=== PATIENT | male | born 1995 | race Caucasian/White ===

== ENCOUNTER 2016-07-10 22:04 | Emergency (ER) | payer OTHER ==
[2016-07-10] MEDS ORDERED: ALBUTEROL SULFATE 2.5 MG/0.5 ML INH NEB SOLN As Ordered ONE (23:27)
[2016-07-10] MEDS ORDERED: ALBUTEROL 90 MCG/ACT 8GM HFA INHALER As Ordered ONE (23:53)
[2016-07-11] MEDS ORDERED: predniSONE 20 MG TAB As Ordered ONE (00:10)
--- NOTE | 2016-07-11 00:20 | EDDOCDS ---
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 Aspirin was not taken prior to arrival. Adult Sepsis Screening: The patient does not have new or worsening altered mentation. Patient's respiratory rate is less than 22. Systolic blood pressure is greater than 100. Patient has a qSOFA score of 0- Negative Sepsis Screen. Suicide/Homicide risk assessment- the patient denies having any suicidal and/or homicidal ideations and does not present with any other emotional, behavioral or mental health complaints. 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 Transition of care: patient was not received from another setting of care. 22:08 Acuity: ERNESTO Level 3 [facility] 22:08 Method Of Arrival: Walkin/Carried/Asstd [facility] Triage Assessment: 22:10 General: Appears uncomfortable, Behavior is cooperative. Pain: Location: chest Pain mcp currently is 5 out of 10 on a pain scale. Quality of pain is described as aching. HIV screening NA for this visit Offered previously. Neurological: No deficits noted. Cardiovascular: Chest pain is described as mild, quality is ache radiates Does not radiate. episodes are intermittent began 2 hours prior to arrival. Respiratory: Airway is patent Respiratory effort is even, unlabored, Reports shortness of breath at rest pain with respiration deep respiration. Derm: Skin is pink, warm & dry. Historical: - Allergies: no known allergies; - Home Meds: 1. none - PMHx: none; - PSHx: none; - Social history: Smoking status: Patient states was never smoker of tobacco. No barriers to communication noted, The patient speaks fluent Portuguese. - Family history: Not pertinent. - : The pt / caregiver states he / she is not on anticoagulants. Home medication list is obtained from the patient. - Exposure Risk Screening:: None identified. Screenin/04 00:01 Screening information is obtained from the patient. Fall risk: No risks identified. ld5 Assistance ADL's: requires no assistance with activities of daily living. Abuse/DV Screen: The patient / caregiver reports he/she is: not in a situation that causes fear, pain or injury. Nutritional screening: No deficits noted. Advance Directives: There is no active DNR order. home support is adequate. Assessment: 07/10 23:25 General: Appears in no apparent distress, Behavior is cooperative. Pain: Location: ld5 chest Aggravated by increased activity. Neurological: Level of Consciousness is awake, alert. Cardiovascular: Rhythm is n/a. Respiratory: Airway is patent Respiratory effort is even, unlabored, Breath sounds are coarse bilaterally. Derm: Skin is intact, Skin is dry. 07/11 00:18 Reassessment: Patient appears in no apparent distress at this time. Patient denies pain rw1 at this time. Patient states feeling better. Patient states symptoms have improved. Vital Signs: 07/10 22:07 BP 172 / 82 LA Sitting (auto/lg); Pulse 92; Resp 16; Temp 98.9(O); Pulse Ox 100% on rs6 R/A; Weight 63.5 kg (R); Height 5 ft. 4 in. (162.56 cm) (R); Pain 5/10; 07/11 00:11 BP 166 / 70; Pulse 96; Resp 20; Temp 97.6(O); Pulse Ox 98% on R/A; Pain 0/10; jmv 07/10 22:07 Body Mass Index 24.03 (63.50 kg, 162.56 cm) rs6 Vitals: 07/10 22:07 Log In Time: July 10, 2016 at 22:07. rs6 ED Course: 22:05 Patient visited by Cassandra Brown, Reg. hs2 22:05 Patient moved to Waiting hs2 22:08 Patient visited by Faustina Pugh, TARA. rs6 22:08 Patient moved to Pre RCE rs6 22:09 Triage Initiated mcp 22:11 Patient visited by Damaris Hagan RN. mcp 22:11 Patient moved to PR2 / mcp 22:26 EKG done. (by ED staff). Reviewed by Juan Barker DO. ttb 22:27 Patient visited by Carito Abraham RN. ttb 22:30 Patient moved to Pre RCE cz 22:53 Patient moved to Triage 2 cz 23:12 Macario Shepherd PA-C is PHCP. dk1 23:12 Juan Barker DO is Attending Physician. dk1 23:12 Patient visited by Macario Shepherd PA-C. dk1 23:18 Patient moved to I6 cz 02/04 00:01 The patient / caregiver is instructed regarding the plan of care and ED course. ld5 Accompanied by Family Member, Patient has correct armband on for positive identification. Cardiac monitoring not applicable on this patient. 00:01 No IV's were initiated during this patient's visit. No procedures done that require ld5 assistance. 00:03 Patient visited by Jessenia Cutler RN. ld5 00:06 Jermaine Chow [facility] is Referral Physician. dk1 00:15 Patient visited by Shiv Benitez PCA. satnamv Administered Medications: 07/10 23:32 Drug: Albuterol 5 mg [albuterol sulfate 2.5 mg/0.5 mL solution for nebulization (1 mL)] nk1 Route: Nebulizer; 07/11 00:18 Follow up: Response: No Adverse Reaction rw1 00:17 Drug: Ventolin 2 puffs [Ventolin HFA 90 mcg/actuation aerosol inhaler (2 puffs)] Route: rw1 Inhalation; 00:17 Follow up: Response: Med's dispensed home rw1 00:17 Drug: predniSONE 40 mg [prednisone 20 mg tablet (2 tabs)] Route: PO; rw1 00:17 Follow up: Response: Pt left department before re-evaluation is appropriate rw1 RT: 07/10 23:33 Initial Med Neb Given as ordered Patient was instructed and evaluated on procedure nk1 Patient tolerated procedure well without adverse effect. Pre Peak Flow: 400. Respiratory: Airway is patent Respiratory effort is even, unlabored, Breath sounds are coarse Breath sounds are diminished bilaterally. in left posterior upper lobe, right posterior upper lobe, left posterior lower lobe, right posterior middle lobe and right posterior lower lobe. 23:43 Post Peak Flow: 500. Respiratory: Breath sounds are clear with increased aeration nk1 throughout, patient states relief. 07/11 00:03 Initial MDI Given. Spacer used Number of puffs given: 2. nk1 Order Results: There are currently no results for this order. Outcome: 00:01 No special radiology studies were completed. ld5 00:06 Discharge ordered by Provider. dk1 00:18 Discharge Assessment: Patient awake, alert and oriented x 3. No cognitive and/or rw1 functional deficits noted. Patient verbalized understanding of disposition instructions. patient administered narcotics - no. The following High Risk Discharge criteria are identified: None. Discharged to home ambulatory, with friend. Condition: stable Condition: improved. Discharge instructions given to patient, Instructed on discharge instructions, follow up and referral plans. medication usage, Demonstrated understanding of instructions, medications, Pt was receptive of discharge instructions/ teaching. Prescriptions given X 2. Property sent home with patient. 00:19 Patient left the ED. rw1 Signatures: Damaris Hagan, RN RN Marquis Manjarrez, RN RN cz Macario Shepherd, PA-C PA-C dk1 Jo Jimenez,RT RT nk1 King Parisi LPN POSTING SPECIALIST rw1 Jessenia Cutler,RN RN ld5 Carito Abraham, RN RN ttb Faustina Pugh, COMPUTATIONAL THEORY SCIENTIST COMPUTATIONAL THEORY SCIENTIST rs6 Cassandra Brown, Reg Reg hs2 Shiv Benitez, COMPUTATIONAL THEORY SCIENTIST COMPUTATIONAL THEORY SCIENTIST jmv MTDD
--- NOTE | 2016-07-11 00:20 | EDDOCDS ---
Physician Documentation [facility] Name: Asif Cleary Age: 21 yrs Sex: Male : 1995 Arrival Date: 07/10/2016 Time: 22:04 Bed I6 / 28 Private MD: Disposition: 07/11/16 00:06 Discharged to Home/Self Care. 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 - Condition is Stable. - Discharge Instructions: Reactive Airway Disease, Child. - Prescriptions for Medrol (Tarik) 4 mg Oral Tablets, Dose Pack - take 1 Pack by ORAL route as directed - follow package instructions; 1 packet. Albuterol Sulfate 90 mcg/actuation Inhalation HFA Aerosol Inhaler - inhale 2 puff by INHALATION route every 4 hours As needed; 1 Inhaler. - Medication Reconciliation, Local Pharmacy Hours form. - Follow up: Jermaine Chow [facility]; When: 2 - 3 days; Reason: Continuance of care. - Problem is an acute exacerbation. - Symptoms are resolved. Historical: - Allergies: no known allergies; - Home Meds: 1. none - PMHx: none; - PSHx: none; - Social history: Smoking status: Patient states was never smoker of tobacco. No barriers to communication noted, The patient speaks fluent Turkish. - Family history: Not pertinent. - : The pt / caregiver states he / she is not on anticoagulants. Home medication list is obtained from the patient. - Exposure Risk Screening:: None identified. Vital Signs: 07/10 22:07 BP 172 / 82 LA Sitting (auto/lg); Pulse 92; Resp 16; Temp 98.9(O); Pulse Ox 100% on rs6 R/A; Weight 63.5 kg / 139.99 lbs (R); Height 5 ft. 4 in. (162.56 cm) (R); Pain 5/10; 07/11 00:11 BP 166 / 70; Pulse 96; Resp 20; Temp 97.6(O); Pulse Ox 98% on R/A; Pain 0/10; jmv 07/10 22:07 Body Mass Index 24.03 (63.50 kg, 162.56 cm) rs6 MDM: 07/10 22:14 ECG WITH READING ER PHYS+CARDIAG ordered. EDMS 23:17 Albuterol 5 mg Nebulizer once ordered. dk1 23:17 Peak Flow Pre & Post ordered. dk1 23:33 Peak Flow Pre & Post complete. nk1 23:58 Call Respiratory ordered. dk1 23:58 MDI teaching with Spacer ordered. dk1 23:58 Ventolin Inhaler 2 puffs Inhalation once ordered. dk1 23:59 Call Respiratory complete. rw1 07/11 00:07 predniSONE 40 mg PO once; administer with food or milk ordered. dk1 00:08 Financial registration complete. [facility] Administered Medications: 07/10 23:32 Drug: Albuterol 5 mg [albuterol sulfate 2.5 mg/0.5 mL solution for nebulization (1 mL)] nk1 Route: Nebulizer; 07/11 00:18 Follow up: Response: No Adverse Reaction rw1 00:17 Drug: Ventolin 2 puffs [Ventolin HFA 90 mcg/actuation aerosol inhaler (2 puffs)] Route: rw1 Inhalation; 00:17 Follow up: Response: Med's dispensed home rw1 00:17 Drug: predniSONE 40 mg [prednisone 20 mg tablet (2 tabs)] Route: PO; rw1 00:17 Follow up: Response: Pt left department before re-evaluation is appropriate rw1 Signatures: Dispatcher [employer] Damaris Ernst RN RN mcp Keyes, David, PA-C PA-C dk1 Jo Jimenez,RT RT nk1 King Parisi,HAND WOVEN CARPET AND RUG MENDER HAND WOVEN CARPET AND RUG MENDER rw1 Jessenia Cutler,RICHARD RN Bonnie Rosa [facility] MTDD
--- NOTE | 2016-07-11 09:01 | ECGEPIP ---
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
--- NOTE | 2016-07-13 01:20 | EDDOCDS ---
Physician Documentation [facility] Name: Asif Cleary Age: 21 yrs Sex: Male : 1995 Arrival Date: 07/10/2016 Time: 22:04 Bed I6 / 28 Private MD: Disposition: 07/11/16 00:06 Discharged to Home/Self Care. 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 - Condition is Stable. - Discharge Instructions: Reactive Airway Disease, Child. - Prescriptions for Medrol (Tarik) 4 mg Oral Tablets, Dose Pack - take 1 Pack by ORAL route as directed - follow package instructions; 1 packet. Albuterol Sulfate 90 mcg/actuation Inhalation HFA Aerosol Inhaler - inhale 2 puff by INHALATION route every 4 hours As needed; 1 Inhaler. - Medication Reconciliation, Local Pharmacy Hours form. - Follow up: Jermaine Chow [facility]; When: 2 - 3 days; Reason: Continuance of care. - Problem is an acute exacerbation. - Symptoms are resolved. Historical: - Allergies: no known allergies; - Home Meds: 1. none - PMHx: none; - PSHx: none; - Social history: Smoking status: Patient states was never smoker of tobacco. No barriers to communication noted, The patient speaks fluent Czech. - Family history: Not pertinent. - : The pt / caregiver states he / she is not on anticoagulants. Home medication list is obtained from the patient. - Exposure Risk Screening:: None identified. Vital Signs: 07/10 22:07 BP 172 / 82 LA Sitting (auto/lg); Pulse 92; Resp 16; Temp 98.9(O); Pulse Ox 100% on rs6 R/A; Weight 63.5 kg / 139.99 lbs (R); Height 5 ft. 4 in. (162.56 cm) (R); Pain 5/10; 07/11 00:11 BP 166 / 70; Pulse 96; Resp 20; Temp 97.6(O); Pulse Ox 98% on R/A; Pain 0/10; jmv 07/10 22:07 Body Mass Index 24.03 (63.50 kg, 162.56 cm) rs6 MDM: 07/10 22:14 ECG WITH READING ER PHYS+CARDIAG ordered. EDMS 23:17 Albuterol 5 mg Nebulizer once ordered. dk1 23:17 Peak Flow Pre & Post ordered. dk1 23:33 Peak Flow Pre & Post complete. nk1 23:58 Call Respiratory ordered. dk1 23:58 MDI teaching with Spacer ordered. dk1 23:58 Ventolin Inhaler 2 puffs Inhalation once ordered. dk1 23:59 Call Respiratory complete. rw1 0204 00:07 predniSONE 40 mg PO once; administer with food or milk ordered. dk1 00:08 Financial registration complete. [facility] 00:31 [facility] Payment Agreement was scanned into [employer] and attached to record. [facility] 17:12 ECG/EKG was scanned into [employer] and attached to record. kf3 17:45 T-Sheet-- Draft Copy was scanned into [employer] and attached to record. klr Administered Medications: 07/10 23:32 Drug: Albuterol 5 mg [albuterol sulfate 2.5 mg/0.5 mL solution for nebulization (1 mL)] nk1 Route: Nebulizer; 07/11 00:18 Follow up: Response: No Adverse Reaction rw1 00:17 Drug: Ventolin 2 puffs [Ventolin HFA 90 mcg/actuation aerosol inhaler (2 puffs)] Route: rw1 Inhalation; 00:17 Follow up: Response: Med's dispensed home rw1 00:17 Drug: predniSONE 40 mg [prednisone 20 mg tablet (2 tabs)] Route: PO; rw1 00:17 Follow up: Response: Pt left department before re-evaluation is appropriate rw1 Signatures: Dispatcher [employer] Damaris Ernst RN RN mcp Keyes, David, PA-C PA-C dk1 Jo Jimenez,RT RT nk1 King Parisi,SENIOR PROCESS ENGINEER SENIOR PROCESS ENGINEER rw1 Darvin Arora, Reg Reg kf3 Jessenia Cutler,RN RN Bonnie Rosa [facility] Tawny Mcclure The chart was reviewed and I authenticate all verbal orders and agree with the evaluation and treatment provided.Attachments: 00:31 [facility] Payment Agreement [facility] 17:12 ECG/EKG kf3 17:45 T-Sheet-- Draft Copy klr Chart Complete MTDD
--- NOTE | 2016-07-13 01:20 | EDDOCDS ---
Physician Documentation [facility] Name: Asif Cleary Age: 21 yrs Sex: Male : 1995 Arrival Date: 07/10/2016 Time: 22:04 Bed I6 / 28 Private MD: Disposition: 07/11/16 00:06 Discharged to Home/Self Care. 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 - Condition is Stable. - Discharge Instructions: Reactive Airway Disease, Child. - Prescriptions for Medrol (Tarik) 4 mg Oral Tablets, Dose Pack - take 1 Pack by ORAL route as directed - follow package instructions; 1 packet. Albuterol Sulfate 90 mcg/actuation Inhalation HFA Aerosol Inhaler - inhale 2 puff by INHALATION route every 4 hours As needed; 1 Inhaler. - Medication Reconciliation, Local Pharmacy Hours form. - Follow up: Jermaine Chow [facility]; When: 2 - 3 days; Reason: Continuance of care. - Problem is an acute exacerbation. - Symptoms are resolved. Historical: - Allergies: no known allergies; - Home Meds: 1. none - PMHx: none; - PSHx: none; - Social history: Smoking status: Patient states was never smoker of tobacco. No barriers to communication noted, The patient speaks fluent Serbian. - Family history: Not pertinent. - : The pt / caregiver states he / she is not on anticoagulants. Home medication list is obtained from the patient. - Exposure Risk Screening:: None identified. Vital Signs: 07/10 22:07 BP 172 / 82 LA Sitting (auto/lg); Pulse 92; Resp 16; Temp 98.9(O); Pulse Ox 100% on rs6 R/A; Weight 63.5 kg / 139.99 lbs (R); Height 5 ft. 4 in. (162.56 cm) (R); Pain 5/10; 07/11 00:11 BP 166 / 70; Pulse 96; Resp 20; Temp 97.6(O); Pulse Ox 98% on R/A; Pain 0/10; jmv 07/10 22:07 Body Mass Index 24.03 (63.50 kg, 162.56 cm) rs6 MDM: 07/10 22:14 ECG WITH READING ER PHYS+CARDIAG ordered. EDMS 23:17 Albuterol 5 mg Nebulizer once ordered. dk1 23:17 Peak Flow Pre & Post ordered. dk1 23:33 Peak Flow Pre & Post complete. nk1 23:58 Call Respiratory ordered. dk1 23:58 MDI teaching with Spacer ordered. dk1 23:58 Ventolin Inhaler 2 puffs Inhalation once ordered. dk1 23:59 Call Respiratory complete. rw1 0204 00:07 predniSONE 40 mg PO once; administer with food or milk ordered. dk1 00:08 Financial registration complete. [facility] 00:31 [facility] Payment Agreement was scanned into [employer] and attached to record. [facility] 17:12 ECG/EKG was scanned into [employer] and attached to record. kf3 17:45 T-Sheet-- Draft Copy was scanned into [employer] and attached to record. klr Administered Medications: 07/10 23:32 Drug: Albuterol 5 mg [albuterol sulfate 2.5 mg/0.5 mL solution for nebulization (1 mL)] nk1 Route: Nebulizer; 07/11 00:18 Follow up: Response: No Adverse Reaction rw1 00:17 Drug: Ventolin 2 puffs [Ventolin HFA 90 mcg/actuation aerosol inhaler (2 puffs)] Route: rw1 Inhalation; 00:17 Follow up: Response: Med's dispensed home rw1 00:17 Drug: predniSONE 40 mg [prednisone 20 mg tablet (2 tabs)] Route: PO; rw1 00:17 Follow up: Response: Pt left department before re-evaluation is appropriate rw1 Signatures: Dispatcher [employer] Damaris Ernst RN RN mcp Keyes, David, PA-C PA-C dk1 Jo Jimenez,RT RT nk1 King Parisi,BODY ART TECHNICIAN BODY ART TECHNICIAN rw1 Darvin Arora, Reg Reg kf3 Jessenia Cutler,RN RN Bonnie Rosa [facility] Tawny Mcclure The chart was reviewed and I authenticate all verbal orders and agree with the evaluation and treatment provided.Attachments: 00:31 [facility] Payment Agreement [facility] 17:12 ECG/EKG kf3 17:45 T-Sheet-- Draft Copy klr Chart Complete MTDD
--- NOTE | 2016-07-13 01:20 | EDDOCDS ---
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 Aspirin was not taken prior to arrival. Adult Sepsis Screening: The patient does not have new or worsening altered mentation. Patient's respiratory rate is less than 22. Systolic blood pressure is greater than 100. Patient has a qSOFA score of 0- Negative Sepsis Screen. Suicide/Homicide risk assessment- the patient denies having any suicidal and/or homicidal ideations and does not present with any other emotional, behavioral or mental health complaints. 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 Transition of care: patient was not received from another setting of care. 22:08 Acuity: ERNESTO Level 3 [facility] 22:08 Method Of Arrival: Walkin/Carried/Asstd [facility] Triage Assessment: 22:10 General: Appears uncomfortable, Behavior is cooperative. Pain: Location: chest Pain mcp currently is 5 out of 10 on a pain scale. Quality of pain is described as aching. HIV screening NA for this visit Offered previously. Neurological: No deficits noted. Cardiovascular: Chest pain is described as mild, quality is ache radiates Does not radiate. episodes are intermittent began 2 hours prior to arrival. Respiratory: Airway is patent Respiratory effort is even, unlabored, Reports shortness of breath at rest pain with respiration deep respiration. Derm: Skin is pink, warm & dry. Historical: - Allergies: no known allergies; - Home Meds: 1. none - PMHx: none; - PSHx: none; - Social history: Smoking status: Patient states was never smoker of tobacco. No barriers to communication noted, The patient speaks fluent Spanish. - Family history: Not pertinent. - : The pt / caregiver states he / she is not on anticoagulants. Home medication list is obtained from the patient. - Exposure Risk Screening:: None identified. Screenin/04 00:01 Screening information is obtained from the patient. Fall risk: No risks identified. ld5 Assistance ADL's: requires no assistance with activities of daily living. Abuse/DV Screen: The patient / caregiver reports he/she is: not in a situation that causes fear, pain or injury. Nutritional screening: No deficits noted. Advance Directives: There is no active DNR order. home support is adequate. Assessment: 07/10 23:25 General: Appears in no apparent distress, Behavior is cooperative. Pain: Location: ld5 chest Aggravated by increased activity. Neurological: Level of Consciousness is awake, alert. Cardiovascular: Rhythm is n/a. Respiratory: Airway is patent Respiratory effort is even, unlabored, Breath sounds are coarse bilaterally. Derm: Skin is intact, Skin is dry. 07/11 00:18 Reassessment: Patient appears in no apparent distress at this time. Patient denies pain rw1 at this time. Patient states feeling better. Patient states symptoms have improved. Vital Signs: 07/10 22:07 BP 172 / 82 LA Sitting (auto/lg); Pulse 92; Resp 16; Temp 98.9(O); Pulse Ox 100% on rs6 R/A; Weight 63.5 kg (R); Height 5 ft. 4 in. (162.56 cm) (R); Pain 5/10; 07/11 00:11 BP 166 / 70; Pulse 96; Resp 20; Temp 97.6(O); Pulse Ox 98% on R/A; Pain 0/10; jmv 07/10 22:07 Body Mass Index 24.03 (63.50 kg, 162.56 cm) rs6 Vitals: 07/10 22:07 Log In Time: July 10, 2016 at 22:07. rs6 ED Course: 22:05 Patient visited by Cassandra Brown, Reg. hs2 22:05 Patient moved to Waiting hs2 22:08 Patient visited by Faustina Pugh, TARA. rs6 22:08 Patient moved to Pre RCE rs6 22:09 Triage Initiated mcp 22:11 Patient visited by Damaris Hagan RN. mcp 22:11 Patient moved to PR2 / mcp 22:26 EKG done. (by ED staff). Reviewed by Juan Barker DO. ttb 22:27 Patient visited by Carito Abraham RN. ttb 22:30 Patient moved to Pre RCE cz 22:53 Patient moved to Triage 2 cz 23:12 Tesfaye Shepherd PA-C is PHCP. dk1 23:12 Juan Barker DO is Attending Physician. dk1 23:12 Patient visited by Tesfaye Shepherd PA-C. dk1 23:18 Patient moved to I6 cz 02/04 00:01 The patient / caregiver is instructed regarding the plan of care and ED course. ld5 Accompanied by Family Member, Patient has correct armband on for positive identification. Cardiac monitoring not applicable on this patient. 00:01 No IV's were initiated during this patient's visit. No procedures done that require ld5 assistance. 00:03 Patient visited by Jessenia Cutler RN. ld5 00:06 Jermaine Chow [facility] is Referral Physician. dk1 00:15 Patient visited by Shiv Benitez PCA. v 00:28 Patient name changed from Gilbert\S\\S\Evin\S\ to Gilbert\S\Edin\S\Evin. EDMS 00:31 [facility] [place] Payment Agreement was scanned into [employer] and attached to record[facility] EKG-ADULT Returned. EDMS 17:12 ECG/EKG was scanned into [employer] and attached to record. kf3 17:45 T-Sheet-- Draft Copy was scanned into [employer] and attached to record. klr Administered Medications: 07/10 23:32 Drug: Albuterol 5 mg [albuterol sulfate 2.5 mg/0.5 mL solution for nebulization (1 mL)] nk1 Route: Nebulizer; 07/11 00:18 Follow up: Response: No Adverse Reaction rw1 00:17 Drug: Ventolin 2 puffs [Ventolin HFA 90 mcg/actuation aerosol inhaler (2 puffs)] Route: rw1 Inhalation; 00:17 Follow up: Response: Med's dispensed home rw1 00:17 Drug: predniSONE 40 mg [prednisone 20 mg tablet (2 tabs)] Route: PO; rw 00:17 Follow up: Response: Pt left department before re-evaluation is appropriate rw1 RT: 07/10 23:33 Initial Med Neb Given as ordered Patient was instructed and evaluated on procedure nk1 Patient tolerated procedure well without adverse effect. Pre Peak Flow: 400. Respiratory: Airway is patent Respiratory effort is even, unlabored, Breath sounds are coarse Breath sounds are diminished bilaterally. in left posterior upper lobe, right posterior upper lobe, left posterior lower lobe, right posterior middle lobe and right posterior lower lobe. 23:43 Post Peak Flow: 500. Respiratory: Breath sounds are clear with increased aeration nk1 throughout, patient states relief. 07/11 00:03 Initial MDI Given. Spacer used Number of puffs given: 2. nk1 Order Results: Radiology Order: EKG-ADULT Test: EKG-ADULT REASON FOR EXAMINATION: palpatations; Stationary ECG Study; [facility] - ED; ; Test Date: 2016-07-10; Pat Name: JAVON CLEARY Department:; Room: -; Gender: M Control Panel Builder: tc; : 1995 Requested By: TESFAYE Rosas PA-C; Order Number: [id number] Reading MD: Paula Patterson; Measurements; Intervals [place]; Rate: 92 P: 53; [place]: 189 QRS: 67; QRSD: 93 T: 23; QT: 359; QTc: 446; Interpretive Statements; SINUS RHYTHM; EARLY REPOLARIZATION; NO PRIOR FOR COMPARISON; Electronically Signed On 07-11-2016 9:01:55 EST by Paula Patterson; Outcome: 00:01 No special radiology studies were completed. ld5 00:06 Discharge ordered by Provider. dk1 00:18 Discharge Assessment: Patient awake, alert and oriented x 3. No cognitive and/or rw1 functional deficits noted. Patient verbalized understanding of disposition instructions. patient administered narcotics - no. The following High Risk Discharge criteria are identified: None. Discharged to home ambulatory, with friend. Condition: stable Condition: improved. Discharge instructions given to patient, Instructed on discharge instructions, follow up and referral plans. medication usage, Demonstrated understanding of instructions, medications, Pt was receptive of discharge instructions/ teaching. Prescriptions given X 2. Property sent home with patient. 00:19 Patient left the ED. rw1 Signatures: Dispatcher [employer] EDMS Damaris Hagan RN RN mcp Zecher, Calvin, RN RN cz Keyes, David, PA-C PA-C dk1 Jo Jimenez,RT RT nk1 King Parisi LPN CABLE STRANDER rw1 Darvin Arora, Reg Reg kf3 Jessenia Cutler RN RN ld5 Carito Abraham, RN RN ttb Bonnie Gallowayh Lexy, Faustina, CELL TUBER MACHINE CELL TUBER MACHINE rs6 Cassandra Brown, Reg Reg hs2 Tawny Mcclure, Shiv, CELL TUBER MACHINE CELL TUBER MACHINE jmv Chart Complete MTDD
== END 2016-07-11 00:19 | disposition home or self-care (01) ==
LOC: M ED 22:04
DX: J45.909 Unspecified asthma, uncomplicated (principal)

== ENCOUNTER 2016-09-12 12:05 | Emergency (ER) | payer OTHER ==
[~2016-09-12] VITALS: Ht 162.6 cm; Wt 65.8 kg
[2016-09-12] MEDS ORDERED: cefTRIAXone SOD 250 MG VIAL (J0696) IM ONE (13:00)
[2016-09-12] MEDS ORDERED: AZITHROMYCIN 250 MG TAB PO ONE (13:00)
[2016-09-12] MEDS ORDERED: LIDOCAINE 1% MDV 20ML VIAL As Ordered ONE (13:06)
[2016-09-12 14:05] VITALS: BP 120/56
== END 2016-09-12 14:06 | disposition home or self-care (01) ==
LOC: M ED 13:21
DX: R30.0 Dysuria (principal)
CPT/HCPCS: 87491; 87591; 96372; 99282; J0696

== ENCOUNTER 2017-07-26 10:56 | Emergency (ER) | payer OTHER ==
[2017-07-26 11:38] LABS: APPEARANCE, URINE HAZY (CLEAR); BACTERIA, URINE AUTO NEGATIVE (NEGATIVE); BILIRUBIN, URINE AUTO NEGATIVE (NEGATIVE); BLOOD, URINE BLOOD NEGATIVE (NEGATIVE); COLOR, URINE YELLOW (YELLOW); GLUCOSE, URINE (UA) AUTO NEGATIVE (NEGATIVE); KETONE, URINE AUTO NEGATIVE (NEGATIVE); LEUKOCYTE ESTERASE, URINE AUTO NEGATIVE (NEGATIVE); NITRITE, URINE AUTO NEGATIVE (NEGATIVE); PROTEIN, URINE AUTO NEGATIVE (NEGATIVE); RBC, URINE AUTO 1 /HPF (0-3); SQUAMOUS EPITHELIAL CELL UR AU 0 /HPF (0-6); UROBILINOGEN, URINE AUTO 0.2 mg/dL (0.0-2.0); WBC, URINE AUTO 1 /HPF (0-3)
[2017-07-26 12:55] LABS: CHLAMYDIA DNA AMPLIFICATION NEGATIVE (NEGATIVE); GC DNA AMPLIFICATION NEGATIVE (NEGATIVE)
== END 2017-07-26 11:59 | disposition home or self-care (01) ==
LOC: M ED 10:56
DX: R30.0 Dysuria (principal)
CPT/HCPCS: 81001